=== PATIENT | female | born 1955 | race Two or more races ===

== ENCOUNTER 2019-04-10 13:01 | Emergency (ER) | payer MEDICARE, OTHER ==
[~2019-04-10] VITALS: Ht 167.6 cm; Wt 89.8 kg
[2019-04-10 13:32] VITALS: BP 146/74
[2019-04-10] MEDS ORDERED: KETOROLAC TROMETH 60MG/2ML VIAL IM ONE (15:30)
== END 2019-04-10 15:55 | disposition home or self-care (01) ==
LOC: ER 13:07
DX: M17.11 Unilateral primary osteoarthritis, right knee (principal)
CPT/HCPCS: 73562; 96372; 99283; J1885